=== PATIENT | male | born 1975 | race Caucasian/White ===

== ENCOUNTER 2021-06-21 12:20 | Emergency (ER) | payer BC ==
[~2021-06-21] VITALS: Ht 185.4 cm; Wt 104.3 kg
== END 2021-06-21 17:20 | disposition home or self-care (01) ==
LOC: ER1 12:20
DX: Z23 Encounter for immunization (principal); U07.1 COVID-19; J12.82 Pneumonia due to coronavirus disease 2019
CPT/HCPCS: 71046; 99284; M0243; U0002

== ENCOUNTER → 2021-06-21 | Outpatient (CLI) | payer BC | LOC: HEART 5 11:14 | DX: R05 Cough (principal); R06.02 Shortness of breath; R91.8 Other nonspecific abnormal finding of lung field | CPT/HCPCS: 71046 ==

== ENCOUNTER → 2021-07-16 | Outpatient (CLI) | payer BC | LOC: EXRD 14:58 | DX: U07.1 COVID-19 (principal); J12.82 Pneumonia due to coronavirus disease 2019 | CPT/HCPCS: 71046; 94060; 94729 ==